=== PATIENT | female | born 1995 | race Asian ===

== ENCOUNTER 2016-08-23 15:32 | Emergency (ER) | payer BC, OTHER ==
[2016-08-23 16:09] VITALS: BP 113/65
--- NOTE | 2016-08-23 16:45 | UC ---
Complaint Female HPI - HPI Summary HPI Summary: FREQUENCY AND BURNING WITH URINATION SINCE THIS MORNING. NO BACK PAIN. NO FEVER. NO ABDOMINAL PAIN - History Of Current Complaint Chief Complaint: UCGU Stated Complaint: POSS UTI Time Seen by Provider: 08/23/16 15:58 Hx Obtained From: Patient Hx Last Menstrual Period: 08/16/16 Onset/Duration: Sudden Onset, Lasting Hours, Still Present Timing: Lasting Hours Severity Initially: Moderate Severity Currently: Moderate Character: Burning Aggravating Factor(s): Urination Alleviating Factor(s): Position Associated Signs And Symptoms: Negative: Fever, Back Pain, Vaginal Bleeding/ Discharge, Vaginal Discharge, Nausea, Vomiting(# Of Episodes =) - Risk Factors Ectopic Risk Factor: Negative Ovarian Torsion Risk Factor: Negative - Allergies/Home Medications Allergies/Adverse Reactions: Allergies Allergy/AdvReac Type Severity Reaction Status Date / Time No Known Allergies Allergy Verified 08/14/13 10:57 PMH/Surg Hx/FS Hx/Imm Hx Previously Healthy: Yes - Surgical History Surgical History: None - Family History Known Family History: Negative: Renal Disease - Social History Occupation: Student Lives: With Family Alcohol Use: Occasionally Substance Use Type: None Smoking Status (MU): Never Smoked Tobacco Review of Systems Constitutional: Negative Skin: Negative Eyes: Negative ENT: Negative Respiratory: Negative Cardiovascular: Negative Gastrointestinal: Negative Genitourinary: Dysuria, Frequency, Urgency Motor: Negative Neurovascular: Negative Musculoskeletal: Negative Neurological: Negative Psychological: Negative All Other Systems Reviewed And Are Negative: Yes Physical Exam Triage Information Reviewed: Yes Appearance: Well-Appearing, No Pain Distress, Well-Nourished Vital Signs: Initial Vital Signs Temp 98.4 F 08/23/16 16:06 Pulse 67 08/23/16 16:06 Resp 18 08/23/16 16:06 BP 113/65 08/23/16 16:06 Pulse Ox 100 08/23/16 16:06 Vital Signs Reviewed: Yes Eye Exam: Normal Eyes: Positive: Conjunctiva Clear ENT Exam: Normal ENT: Positive: Normal ENT inspection, Hearing grossly normal, Pharynx normal, TMs normal Dental Exam: Normal Neck exam: Normal Neck: Positive: Supple, Nontender, No Lymphadenopathy Respiratory Exam: Normal Respiratory: Positive: Chest non-tender, Lungs clear, Normal breath sounds, No respiratory distress, No accessory muscle use Cardiovascular Exam: Normal Cardiovascular: Positive: RRR, No Murmur, Pulses Normal Abdominal Exam: Normal Abdomen Description: Positive: Nontender, No Organomegaly, Soft. Negative: CVA Tenderness (R), CVA Tenderness (L) Musculoskeletal Exam: Normal Neurological Exam: Normal Psychological Exam: Normal Skin Exam: Normal Complaint Female Dx - Differential Dx/Diagnosis Differential Diagnosis/HQI/PQRI: Ovarian Cyst, Retained Foreign Body, Sexually Transmitted Disease, Urinary Tract Infection Provider Diagnoses: URINARY TRACT INFECTION Discharge - Discharge Plan Condition: Stable Disposition: HOME Prescriptions: Phenazopyridine TAB* [Pyridium 100 mg TAB*] 100 mg PO TID #15 tab Sulfamethox/Trimethoprim DS* [Bactrim DS 800/160 TAB*] 1 tab PO BID #10 tab Patient Education Materials: Urinary Tract Infection in Women (ED) Referrals: Alex Acosta MD [Primary Care Provider] -
== END 2016-08-23 16:50 | disposition home or self-care (01) ==
LOC: UCEAST 15:32
DX: N39.0 Urinary tract infection, site not specified (principal)
CPT/HCPCS: 81003; 84702; 87077; 87086; 87186; 99202; G0463

== ENCOUNTER 2016-10-09 07:55 | Emergency (ER) | payer BC ==
[2016-10-09 08:26] VITALS: BP 108/75
--- NOTE | 2016-10-09 08:36 | UC ---
Complaint Female HPI - HPI Summary HPI Summary: 5 DAYS OF URINARY FREQUENCY AND DYSURIA. NO FEVER, NAUSEA OR BACK PAIN. - History Of Current Complaint Chief Complaint: UCGU Stated Complaint: UTI Time Seen by Provider: 10/09/16 07:59 Hx Obtained From: Patient Hx Last Menstrual Period: 09/17/16 Onset/Duration: Gradual Onset, Lasting Days, Still Present Timing: Constant Severity Initially: Mild Severity Currently: Mild Pain Intensity: 2 Pain Scale Used: 0-10 Numeric Character: Burning Aggravating Factor(s): Urination Alleviating Factor(s): Nothing Associated Signs And Symptoms: Positive: Negative - Allergies/Home Medications Allergies/Adverse Reactions: Allergies Allergy/AdvReac Type Severity Reaction Status Date / Time No Known Allergies Allergy Verified 08/14/13 10:57 PMH/Surg Hx/FS Hx/Imm Hx Previously Healthy: Yes Endocrine History Of: Denies: Diabetes, Thyroid Disease Cardiovascular History Of: Denies: Cardiac Disorders, Hypertension Respiratory History Of: Denies: COPD, Asthma GI/ History Of: Denies: Ulcer - Surgical History Surgical History: None - Family History Known Family History: Negative: Hypertension, Renal Disease - Social History Alcohol Use: Occasionally Substance Use Type: None Smoking Status (MU): Never Smoked Tobacco Review of Systems Constitutional: Negative Respiratory: Negative Cardiovascular: Negative Gastrointestinal: Negative Genitourinary: Dysuria, Frequency All Other Systems Reviewed And Are Negative: Yes Physical Exam Triage Information Reviewed: Yes Appearance: Well-Appearing, No Pain Distress, Well-Nourished Vital Signs: Initial Vital Signs Temp 98.3 F 10/09/16 08:22 Pulse 64 10/09/16 08:22 Resp 18 10/09/16 08:22 BP 108/75 10/09/16 08:22 Pulse Ox 100 10/09/16 08:22 Vital Signs Reviewed: Yes Eyes: Positive: Conjunctiva Clear ENT: Positive: Hearing grossly normal Respiratory: Positive: No respiratory distress, No accessory muscle use Cardiovascular: Positive: Pulses Normal Abdomen Description: Positive: Soft, Other: - SUPRAPUBIC TTP. Negative: CVA Tenderness (R), CVA Tenderness (L), Distended, Guarding Musculoskeletal: Positive: No Edema Neurological: Positive: Alert Psychological: Positive: Age Appropriate Behavior Skin: Negative: rashes Diagnostics - Laboratory Diagnostic Studies Completed/Ordered: URINE TEST SP. GR. 1.030, 1+ LEUKS, 2+ BLOOD, 2+ PROTEIN. URINE HCG NEG Complaint Female Dx - Differential Dx/Diagnosis Provider Diagnoses: UTI Discharge - Discharge Plan Condition: Stable Disposition: HOME Prescriptions: Phenazopyridine TAB* [Pyridium TAB*] 200 mg PO TID #6 tab Sulfamethox/Trimethoprim DS* [Bactrim DS 800/160 TAB*] 1 tab PO BID #10 tab Patient Education Materials: Urinary Tract Infection in Women (ED) Referrals: Alex Acosta MD [Primary Care Provider] - If Needed
== END 2016-10-09 08:45 | disposition home or self-care (01) ==
LOC: UCEAST 07:55
DX: N39.0 Urinary tract infection, site not specified (principal)
CPT/HCPCS: 81003; 84702; 87077; 87086; 87186; 99212; G0463

== ENCOUNTER 2017-03-10 09:08 | Emergency (ER) | payer BC ==
[2017-03-10 09:17] VITALS: BP 121/68
--- NOTE | 2017-03-10 09:30 | UC ---
Back Pain HPI - HPI Summary HPI Summary: 1 WEEK OF LOWER BACK PAIN. WHEN SEATED IT RADIATES DOWN HER LEGS. NO NUMBNESS, TINGLING OR SADDLE ANESTHESIA. 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 IBUPROFEN NOT HELPFUL. WORSE WITH MOVEMENT. - History of Current Complaint Chief Complaint: UCBackPain Stated Complaint: BACK PAIN Time Seen by Provider: 03/10/17 09:22 Hx Obtained From: Patient Hx Last Menstrual Period: 02/24/17 Onset/Duration: Sudden Onset, Lasting Weeks, Still Present Timing: Constant Severity Initially: Moderate Severity Currently: Moderate Pain Intensity: 6 Pain Scale Used: 0-10 Numeric Back Pain: Is Discrete @ - LOWER BACK Character: Aching Aggravating Factor(s): Movement Alleviating Factor(s): Rest Associated Signs And Symptoms: Positive: Negative - Allergies/Home Medications Allergies/Adverse Reactions: Allergies Allergy/AdvReac Type Severity Reaction Status Date / Time No Known Allergies Allergy Verified 03/10/17 09:12 Home Medications: Home Medications Oral Control 03/10/17 [History] PMH/Surg Hx/FS Hx/Imm Hx Previously Healthy: Yes - Surgical History Surgical History: None - Family History Known Family History: Negative: Hypertension, Renal Disease - Social History Alcohol Use: Occasionally Substance Use Type: None Smoking Status (MU): Never Smoked Tobacco Review of Systems Constitutional: Negative Respiratory: Negative Cardiovascular: Negative Gastrointestinal: Negative Musculoskeletal: Decreased ROM, Myalgia All Other Systems Reviewed And Are Negative: Yes Physical Exam Triage Information Reviewed: Yes Appearance: Well-Appearing, No Pain Distress, Well-Nourished Vital Signs: Initial Vital Signs Temp 98.8 F 03/10/17 09:13 Pulse 68 03/10/17 09:13 Resp 16 03/10/17 09:13 BP 121/68 03/10/17 09:13 Pulse Ox 100 03/10/17 09:13 Vital Signs Reviewed: Yes Eyes: Positive: Conjunctiva Clear ENT: Positive: Hearing grossly normal Neck: Positive: Supple Respiratory: Positive: No respiratory distress, No accessory muscle use Cardiovascular: Positive: Pulses Normal Abdomen Description: Positive: Soft Musculoskeletal: Positive: No Edema, ROM Limited @ - BACK, Other: - NEG STRAIGHT LEG RAISE Neurological: Positive: Alert Psychological: Positive: Age Appropriate Behavior Skin: Negative: rashes Back Pain Course/Dx - Differential Dx/Diagnosis Provider Diagnoses: ACUTE LOW BACK PAIN Discharge - Discharge Plan Condition: Stable Disposition: HOME Prescriptions: Cyclobenzaprine TAB* [Flexeril TAB*] 10 mg PO BID PRN #30 tab PRN Reason: Pain Naproxen [Naproxen EC] 500 mg PO BID PRN #30 tab PRN Reason: Pain Patient Education Materials: Acute Low Back Pain (ED) Referrals: Alex Acosta MD [Primary Care Provider] - If Needed Additional Instructions: BE SURE TO GO THROUGH SLOW RANGE OF MOTION AND STRETCHING EXERCISES DAILY YOU ARE ABLE TO PREVENT STIFFENING UP AND MAKING THE DISCOMFORT WORSE. SEEK FOLLOW-UP WITH YOUR PCP IF YOU ARE NOT IMPROVING OVER THE NEXT FEW WEEKS.
== END 2017-03-10 09:40 | disposition home or self-care (01) ==
LOC: UCEAST 09:08
DX: M54.5 Low back pain (principal)
CPT/HCPCS: 99212; G0463

== ENCOUNTER 2017-06-13 10:49 | Emergency (ER) | payer BC ==
--- OUTSIDE RECORDS SUMMARY | 2017-06-13 11:09 | XMS REPORT ---
:1995 External Reference #:[id number] Author Organization [facility] Address [address] [place] [address] Phone [phone] Care Team Providers Name Role Phone Alex Acosta M.D. Primary Care Physician Unavailable Payers Type Date Identification Numbers Payment Provider Subscriber Commercial Policy Number: [employer] Alisa Tran [id number] Plan PayID: [id number] [address] [address] [place] [address] Problems Date Description Provider Status Onset: 04/29/2015 Myopia Marisela Celis O.D. 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 ETOH Use Denies alcohol use Smoking Patient has never smoked Recreational Drug Use Denies Drug Use Daily Caffeine Does Not Consume Caffeine Allergies, Adverse Reactions, Alerts Date Description Reaction Status Severity Comments 04/29/2015 NKDA active Medications Medication Date Status Form Strength Qnty SIG Indications Ordering Provider Ortho Tri-Cyclen Active Tablets 0.18/0.215/0 Unknown Lo 0 .25 mg-25 mcg No Active Hx Unknown Medications 5 - 5 Results Description No Information Procedures Date CPT Code Description Status 05/10/2017 28021 Determination Of Refractive State Completed 05/10/2017 17594 Est Patient Comprehensive Exam Completed 04/29/2015 47047 Determination Of Refractive State Completed 04/29/2015 69159 Est Patient Comprehensive Exam Completed 04/24/2014 75501 Determination Of Refractive State Completed 04/24/2014 79342 New Patient Comprehensive Exam Completed 04/24/2014 101 Level 1 SCL Fit/Refit Completed Plan of Care 05/10/2017 - Inessa Fu O.D.[id number] Myopia, bilateralComments:Smoking can increase the risk of developing or worsening any eye related disease, as well as affect your overall health. If you are a smoker, we strongly recommend that you quit.If you are not a smoker, we strongly recommend that you do not start. You have Myopia, or near sightedness. I have given you a prescription for glasses.Follow up:1 Year Follow Up
--- OUTSIDE RECORDS SUMMARY | 2017-06-13 11:10 | XMS REPORT ---
:1995 External Reference #:[id number] Author Organization [facility] Address [address] [place] [address] Phone [phone] Care Team Providers Name Role Phone Alex Acosta MD Care Team Information Rn Or Lvn Unavailable Alex Acosta MD Primary Care Physician Unavailable Payers Type Date Identification Payment Subscriber Numbers Provider Health Maintenance Effective: Policy Number: [employer]) 05/31/2016 [id number] Artur Sexton Group Number: [id number] [address] [address] PayID: [id number] [place] [address] Problems Description No Information Family History Date Family Member(s) Problem(s) Comments Father 51. healthy. Mother 49, healthy. First Brother healthy. Social History Type Date Description Comments Education Highest level of education completed is 12th grade. studying at [employer] second year. Studying accounting. 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 Cigarette Use Never Smoked Cigarettes ETOH Use Social Alcohol 3 drinks a month. Recreational Drug Use Never Used Drugs Exercise Type/Frequency Current Does not exercise Seat Belt/Car Seat Always uses a seat belt Bike Helmet Patient always wears a bike helmet Currently Active The patient is currently sexually active Allergies, Adverse Reactions, Alerts Date Description Reaction Status Severity Comments 05/20/2012 NKDA active Medications Medication Date Status Form Strength Qnty SIG Indications Ordering Provider Cyclobenzaprine 06/10 Active Tablets 10mg 10tab take one by G44.209 Karli C. 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 Do not take more than 3 consecutive days in a row. 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 /2008 today , then Midura, - 1 po qd M.D. 06/24 times Zithromax 05/16 Hx 200mg/5cc 30ml 1 1/2 TSP Aileen Suspension /2002 Day One Then Delfin, 200MG/5cc - 3/4 TSP WOOD FLOOR REFINISHER 06/23 Daily /2004 Over Next 4 Days. Albuterol 05/16 Hx 1unit 2 puffs Aileen Inhaler /2002 s q3-4H prn Delfin, - WOOD FLOOR REFINISHER 07/07 Aerochamber 05/16 Hx 1unit Use as Aileen /2002 s Directed Delfin, - WOOD FLOOR REFINISHER 07/07 Hydrocortisone 12/09 Hx 1% 30gm Apply bid Chaitanya Diaz /2000 prn Manolo Cazares M.DSridhar 07/07 To Zithromax 05/23 Hx 200mg/5cc 15ml 3/4 TSP Marshall T. Suspension /1997 Day1, Then Midura, 200MG/5cc - 1/2 TSP Day M.D. 05/05 2- Hydrocortisone 05/23 Hx 2.5% 30gm Apply bid Marshall T. Cream prn To Midura, - Lesions M.D. 05/05 Poly Fluoride 04/05 Hx 0.5mg Tab 100un One Tab Chaitanya Sridhar its Chewed Daily Blumkin, - M.D. 05/05 Sodium Sulamyd 05/26 Hx Lexi 10ml 1-2 gtts . 10% Opth Lexi /1996 Into Both Blumkin, - Eyes qid M.D. 05/05 Until Poly Fluoride 05/26 Hx 0.25mg 50cc One Dropper Chaitanya M. qd Blumkin, - M.D. 05/05 Ortho Tri-Cyclen Hx Tablets 0.18/0.21 28tab take as Unknown /0000 5/0.25 s directed - mg-35 mcg 05/15 Immunizations CPT Code Status Date Vaccine Lot # [id number] Given 02/16/2013 DO Not Use Split Influenza Virus Vaccine [id number] 27326 Given 03/22/2012 DO Not Use Split Influenza Virus Vaccine [id number] 13242 Given 10/22/2009 Gardasil vacine typs 6,11,16,18 3 dose [id number] schedule 91623 Given 06/27/2009 Gardasil vacine typs 6,11,16,18 3 dose [id number] schedule 92156 Given 04/24/2009 Gardasil vacine typs 6,11,16,18 3 dose [id number] schedule 57327 Given 07/07/2006 Tdap Tetanus, W Pertussis [id number] 69144 Given 07/07/2006 Hep A Ped 2-Dose Immunization [id number] 01460 Given 11/05/2005 Hep A Ped 2-Dose Immunization [id number] 23351 Given 05/05/2000 (IPV) Inactive Poliovirus Vaccine 42685 Given 05/05/2000 MMR Virus Immunization 92547 Given 04/07/1999 Oral Poliovirus Immunization 65038 Given 04/07/1999 MMR Virus Immunization 54563 Given 05/22/1997 DTP Immunization 07938 Given 05/22/1997 Oral Poliovirus Immunization 71364 Given 05/22/1997 Hemopholus Influenza B Immunization 00679 Given 01/14/1996 MMR Virus Immunization 29364 Given 09/29/1995 Measles Immunization 73900 Given 06/25/1995 Hepatitis B Immunization, [place]-19 Years 34929 Given 06/25/1995 Hemopholus Influenza B Immunization 27990 Given 06/25/1995 Oral Poliovirus Immunization 26717 Given 04/21/1995 Hemopholus Influenza B Immunization 09084 Given 04/21/1995 Oral Poliovirus Immunization 46970 Given 04/21/1995 DTP Immunization 31342 Given 02/19/1995 Hemopholus Influenza B Immunization 97779 Given 02/19/1995 Oral Poliovirus Immunization 15109 Given 02/19/1995 DTP Immunization 79364 Given 02/02/1995 Hepatitis B Immunization, [place]-19 Years 39450 Given 1994 Hepatitis B Immunization, -19 Years Vital Signs Date Vital Result Comment 06/10/2017 BP Systolic 118 mmHg BP Diastolic 60 mmHg Heart Rate 76 /min Body Temperature 98.7 F Respiratory Rate 16 /min Height 59.5 inches 4'11.50" Weight 129.25 lb BMI (Body Mass Index) 25.7 kg/m2 03/05/2016 BP Systolic 112 mmHg BP Diastolic 64 mmHg Heart Rate 64 /min Body Temperature 97.8 F Respiratory Rate 16 /min Height 59.5 inches 4'11.50" Weight 129.50 lb BMI (Body Mass Index) 25.7 kg/m2 11/28/2015 BP Systolic 110 mmHg BP Diastolic 68 mmHg Heart Rate 80 /min Body Temperature 98.7 F Respiratory Rate 16 /min Height 59.5 inches 4'11.50" Weight 122.12 lb BMI (Body Mass Index) 24.3 kg/m2 10/03/2015 BP Systolic 118 mmHg BP Diastolic 60 mmHg Heart Rate 68 /min Body Temperature 98.2 F Respiratory Rate 16 /min Height 59.5 inches 4'11.50" Weight 119.00 lb BMI (Body Mass Index) 23.6 kg/m2 08/20/2015 BP Systolic 108 mmHg BP Diastolic 70 mmHg Heart Rate 64 /min Body Temperature 96.8 F Respiratory Rate 16 /min Height 59.5 inches 4'11.50" Weight 119.00 lb BMI (Body Mass Index) 23.6 kg/m2 08/08/2015 BP Systolic 110 mmHg BP Diastolic 64 mmHg Heart Rate 68 /min Body Temperature 98.4 F Respiratory Rate 16 /min Height 59.5 inches 4'11.50" Weight 119.00 lb BMI (Body Mass Index) 23.6 kg/m2 11/16/2014 BP Systolic 110 mmHg BP Diastolic 64 mmHg Heart Rate 68 /min Body Temperature 95.7 F Respiratory Rate 16 /min Height 59.5 inches 4'11.50" Weight 120.00 lb BMI (Body Mass Index) 23.8 kg/m2 07/20/2014 BP Systolic 118 mmHg BP Diastolic 60 mmHg Heart Rate 64 /min Body Temperature 98.5 F Respiratory Rate 16 /min Height 59.5 inches 4'11.50" Weight 124.00 lb BMI (Body Mass Index) 24.6 kg/m2 07/18/2014 BP Systolic 106 mmHg BP Diastolic 56 mmHg Heart Rate 60 /min Body Temperature 98.1 F Respiratory Rate 16 /min Weight 124.12 lb 02/07/2014 BP Systolic 120 mmHg BP Diastolic 70 mmHg Heart Rate 76 /min Body Temperature 98.7 F Respiratory Rate 17 /min Height 59.5 inches 4'11.50" Weight 117.00 lb BMI (Body Mass Index) 23.2 kg/m2 10/13/2012 BP Systolic 90 mmHg BP Diastolic 60 mmHg Heart Rate 54 /min Body Temperature 98.6 F Respiratory Rate 16 /min O2 % BldC Oximetry 97 % Height 59.5 inches 4'11.50" Weight 112.00 lb BMI (Body Mass Index) 22.2 kg/m2 Body Mass Index Percentile 62 % Weight Percentile 25th Height Percentile 3 % 05/20/2012 BP Systolic 98 mmHg BP Diastolic 68 mmHg Heart Rate 60 /min Body Temperature 98.0 F Height 59.5 inches 4'11.50" Weight 118.00 lb BMI (Body Mass Index) 23.4 kg/m2 Body Mass Index Percentile 74 % Weight Percentile 40th Height Percentile 3 % 11/21/2010 BP Systolic 104 mmHg BP Diastolic 60 mmHg Heart Rate 60 /min Body Temperature 97.1 F Respiratory Rate 16 /min Height 59.5 inches 4'11.50" Weight 111.00 lb BMI (Body Mass Index) 22.0 kg/m2 Body Mass Index Percentile 68 % Weight Percentile 34th Height Percentile 3 % Right Visual Acuity Distance 20/50 corrected Left Visual Acuity Distance 20/50 corrected 07/25/2010 BP Systolic 100 mmHg BP Diastolic 56 mmHg Heart Rate 64 /min Body Temperature 98.6 F Height 59.5 inches 4'11.50" Weight 107.00 lb BMI (Body Mass Index) 21.2 kg/m2 Body Mass Index Percentile 62 % Weight Percentile 28th Height Percentile 4 % 08/14/2008 BP Systolic 110 mmHg BP Diastolic 70 mmHg Heart Rate 84 /min Body Temperature 101.5 F Weight 96.00 lb Weight Percentile 3007/07/2006 BP Systolic 92 mmHg BP Diastolic 50 mmHg Heart Rate 76 /min Body Temperature 99.2 F Height 51.5 inches 4'3.50" Weight 80.00 lb BMI (Body Mass Index) 21.2 kg/m2 Body Mass Index Percentile 88 % Weight Percentile 34th Height Percentile 5 % Right Visual Acuity Distance 20/20 Left Visual Acuity Distance 20/20 06/23/2004 Heart Rate 88 /min Body Temperature 97.7 F Weight 62.00 lb Weight Percentile 3203/31/2004 Heart Rate 78 /min Body Temperature 97.6 F Weight 60.00 lb Weight Percentile 3105/16/2003 Heart Rate 92 /min Body Temperature 98.8 F Weight 55.00 lb Weight Percentile 3404/11/2001 Heart Rate 88 /min Body Temperature 98.8 F Height 41 inches 3'5" Weight 35.00 lb BMI (Body Mass Index) 14.6 kg/m2 Weight Percentile <5th Height Percentile 5 % Right Visual Acuity Distance 20/20 Left Visual Acuity Distance /20/20 12/09/2000 Body Temperature 98.1 F Weight 34.00 lb 05/05/2000 BP Systolic 98 mmHg BP Diastolic 54 mmHg Heart Rate 120 /min Height 40.5 inches 3'4.50" Weight 34.00 lb BMI (Body Mass Index) 14.9 kg/m2 Height Percentile 9 % Right Visual Acuity Distance 20/25 Left Visual Acuity Distance 20/25 04/07/1999 BP Systolic 98 mmHg BP Diastolic 54 mmHg Heart Rate 88 /min Height 38 inches 3'2" Weight 30.00 lb BMI (Body Mass Index) 14.6 kg/m2 Height Percentile 12 % 05/23/1998 Body Temperature 97.8 F Weight 27.00 lb Weight Percentile 04/05/1998 Body Temperature 97.6 F Height 35 inches 2'11" Weight 27.00 lb Weight Percentile 04/02/1998 Body Temperature 96.9 F Weight 27.00 lb Weight Percentile 05/22/1997 Body Temperature 96.2 F Respiratory Rate 2020 /min Height 32.50 inches 2'8.50" Weight 23.00 lb Weight Percentile <5th Results Test Date Test Result H/L Range Note Laboratory test 10/09/2016 Urine Culture And SEE RESULT BELOW 1, 2 finding Sensitivities Laboratory test 10/09/2016 Poc , Urine Negative Negative 3 finding Poc Urinalysis 10/09/2016 Poc Glucose, Urine Negative Negative Poc Bilirubin, Urine Negative Negative Poc Ketone, Urine Negative Negative Poc Specific Braggs, Urine >=1.030 1.010-1.030 Poc Blood, Urine 2+ Negative Poc pH, Urine 6.0 5-9 Poc Protein, Urine 2+ Negative Poc Urobilinogen, Urine 0.2 Negative Poc Nitrite, Urine Negative Negative Poc Leukocytes, Urine 1+ Negative Poc Color, Urine Yellow Poc Clarity, Urine Cloudy 4 Laboratory test 08/23/2016 Urine Culture And SEE RESULT BELOW 5 finding Sensitivities Iron And Tibc 10/03/2015 Iron Bind.Cap.(Tibc) 358 g/dL 250-450 6 Uibc 283 g/dL 131-425 6 Iron, Serum 75 g/dL 27-159 6 Iron Saturation 21 % 15-55 6 Laboratory test finding 10/03/2015 Ferritin 16 ng/mL 6-115 7 Vitamin B-12 272 pg/mL 230-1050 Vitamin D25 14 Low 30-100 8 Laboratory test finding 10/03/2015 Sedimentation Rate 4mm Hemoglobinopahty Profile 10/03/2015 Hgb Solubility Negative Negative 6 Hgb F 11.3 % High 0.0-2.0 6, 9 Hgb A 83.5 % Low 94.0-98.0 6 Hgb S 0.0 % 0.0 6 Hgb C 0.0 % 0.0 6 Hgb A2 5.2 % High 0.7-3.1 6 Hgb Variant TNP 6 Interpretation See Comment: 6, 10 Comprehensive Metabolic Prof 08/08/2015 Sodium 135 mEq/L 134-149 Potassium 4.3 mEq/L 3.6-5.5 Chloride 101 mEq/L 94-112 Carbon Dioxide 26 mEq/L 21-32 Glucose 91 mg/dL 70-105 BUN 8 mg/dL 6-26 Creatinine 0.7 mg/dL 0.6-1.4 BUN/Creat Ratio 11.4 CALC 8.0-36.0 Calcium 9.8 mg/dL 8.6-10.2 Total Protein 7.2 g/dL 6.4-8.3 Albumin 4.3 g/dL 3.8-5.5 Globulin 2.9 g/dL 2.0-4.8 A/G Ratio 1.5 CALC 0.6-2.3 Alk. Phosphatase 29 U/L Low 30-110 11 Alt (SGPT) 9 U/L 7-35 Ast (Sgot) 18 U/L 5-34 Total Bilirubin 0.5 mg/dL 0.2-1.3 GFR Non- >60 ml/min/1.73m^ >=60 GFR >60 ml/min/1.73m^ >=60 Lipid Profile 08/08/2015 Cholesterol 177 mg/dL 120-200 Triglycerides 119 mg/dL 30-200 HDL Cholesterol 76 mg/dL 30-85 LDL (Calculated) 77 CALC 0-129 VLDL Cholesterol 24 mg/dL 0-50 HDL Risk Factor 2.3 CALC 0.0-4.4 Complete Blood Count 08/08/2015 WBC 6.0 x10^3/UL 3.6-9.6 RBC 5.33 x10^6/UL 3.90-5.70 HGB 12.1 g/dL 12.1-17.2 HCT 38 % 36-50 MCV 70.0 fL Low 82.2-97.4 12 MCH 22.7 pg Low 27.6-33.3 13 MCHC 32.1 g/dL Low 33.0-35.5 14 RDW 19.4 % High 11.6-13.7 PLT 387 x10^3/UL 150-400 MPV 7.6 fL 7.4-10.4 Gran # 4.5 x10^3/UL 1.5-7.2 Lymph# 1.3 x10^3/UL 0.7-4.9 Linn# 0.2 x10^3/UL 0.1-0.9 Gran % 73.9 % 42.2-75.2 Lymph % 22.2 % 20.5-51.1 Linn% 3.9 % 1.7-9.3 Laboratory test finding 08/08/2015 TSH 1.43 mIU/L 0.50-6.00 15 Free T4 1.01 ng/dL 0.75-1.54 Laboratory test finding 11/16/2014 Quickstrep negative Negative Throat - Beta Strep Fma negative@48hrs Laboratory test finding 10/13/2012 Quickstrep NEGATIVE Negative Throat - Beta Strep Fma [id number] Ua - Micro (a) 07/07/2006 Appearance CLEAR Color YELLOW Glucose NEG Bilirubin NEG Ketones NEG SP Grav >=1.030 Blood TRACE-INTACT PH 5.0 Protein, Random Urine NEG Urobil 0.2 Nitrite NEG Leukocytes (Fma/CMC/Centrex) NEG Hyaline - /Lpf Granular - /Lpf WBC (Fma,Centrex) - RBC, Fluid 2-4 Mucus SM AMT /Lpf Epith - /Lpf Bacteria RARE /Hpf Amorphous - /Lpf Crystals, Urine (Fma/CMC/CTX) - /Lpf Misc - Ua - Micro (a New) 04/19/2001 Appearance CLEAR LT YELLOW Glucose NEGATIVE Bilirubin NEGATIVE Ketones NEGATIVE SP Grav >=1.030 Blood TRACE-INTACT PH 5.0 Protein NEGATIVE Urobil 0.2 Nitrite NEGATIVE Leukocytes NEGATIVE Hyaline - /Lpf Granular - /Lpf WBC'S - RBC'S 0-1 Mucus - /Lpf Epith RARE Bacteria RARE Amorphous SLT /Lpf Crystals - /Lpf Comments - Laboratory test finding 04/11/2001 Hematocrit 35 % Low 36.1 - 50.3 Ua - Micro ([facility]) 04/11/2001 Appearance CLEAR LT YELLOW Glucose NEGATIVE Bilirubin NEGATIVE Ketones NEGATIVE SP Grav 1.020 Blood TRACE-INTACT PH 7.0 Protein NEGATIVE Urobil 1.0 Nitrite NEGATIVE Leukocytes TRACE Hyaline - /Lpf Granular - /Lpf WBC'S 0-1 RBC'S 1-5 Mucus - /Lpf Epith - Bacteria 1+ Amorphous - /Lpf Crystals - /Lpf Comments SEE DETAILS 16 Ua - Non Micro (a New) 05/05/2000 Appearance CLEAR/LT YELLOW Glucose NEG Bilirubin NEG Ketones NEG SP Grav 1.015 Blood NEG PH 7.0 Protein NEG Urobil 0.2 Nitrite NEG Leukocytes NEG Ua - Non Micro ([facility]) 04/07/1999 Appearance LT. YEL CLEAR SP Grav 1.010 Esterase - Nitrite - pH 7.5 Protein - Glucose - Ketones - Urobil - Bilirubin - Blood - 1 [id number] SEE RESULT BELOW Name: LONNIE SEXTON : [address]: Coco Post MD Acct: [id number] Unit: [id number] AGE: 20 Location: [facility] Re10/09/16 SEX: F Status: DEP ER SPEC: [id number] MARYSOL: 10/09/[address]: Coco Post MD REQ: [id number] RECD: 10/09/16 STATUS: TRIXIE JOYNER DR: Alex Acosta MD _ SOURCE: URINE SPDESC: ORDERED: Urine Culture COMMENTS: [id number] Procedure Result Reported Site Urine Culture Final 10/11/16- 0728 ML Organism 1 ESCHERICHIA COLI [place] Count >100,000 (Many) CFU/ML 1. ESCHERICHIA COLI M.I.C. RX --------- ------ Ampicillin >=32 R Cefazolin <=4 S Cefepime <=1 S Ceftriaxone <=1 S Ciprofloxacin <=0.25 S Gentamicin <=1 S Levofloxacin <=0.12 S Meropenem <=0.25 S Nitrofurantoin <=16 S Tetracycline <=1 S Pipercillin/Tazobactam <=4 S Trimethoprim/Sulfamethoxazole <=20 S Amoxicillin/Clavulanic Acid 16 I Aztreonam <=1 S Contact the Microbiology Department for any additional antibiotic reporting. * ML - MAIN LAB ([facility]) . END OF REPORT * ML=Testing performed at Main Lab DEPARTMENT OF PATHOLOGY, [address] [place] [address] Chaitanya Sanchez M.D. Director [facility] # [id number] 3 Reporter Anchor: [id number] If is still suspected, please repeat test after 48 to 72 hours. 4 Reporter Anchor: [id number] 5 SEE RESULT BELOW Name: LONNIE SEXTON : [address]: Kwaku Hearn MD Acct: [id number] Unit: [id number] AGE: 20 Location: [facility] Re08/23/16 SEX: F Status: DEP ER SPEC: [id number] MARYSOL: 08/23/16-[address]: Say WEBER REQ: [id number] RECD: 08/24/16-1099 STATUS: TRIXIE JOYNER DR: Kwaku Acosta MD _ SOURCE: URINE SPDESC: ORDERED: Urine Culture Procedure Result Reported Site Urine Culture Final 08/31/16- 1507 ML Organism 1 STREP GROUP B [place] Count 10-25,000 (Moderate) CFU/ML Organism 2 ESCHERICHIA COLI [place] Count 25-50,000 (Moderate) CFU/ML Susceptibility testing of penicillins and other B-lactams approved by FDA for treatment of Streptococcus pyogenes (Group A Strep) and Streptococcus agalactiae (Group B Strep) is not necessary for clinical purposes and need not be done routinely, since as with vancomycin, resistant strains have not been recognized. (CLSI G290-S47;p.66) Positive isolates will be saved for one week. Please call the Microbiology Laboratory if further susceptibility testing is needed. 2. ESCHERICHIA COLI M.I.C. RX --------- ------ Ampicillin >=32 R Cefazolin 16 I Cefepime <=1 S Ceftriaxone <=1 S Ciprofloxacin <=0.25 S Gentamicin <=1 S Levofloxacin <=0.12 S Meropenem <=0.25 S Nitrofurantoin <=16 S CONTINUED ON NEXT PAGE * ML=Testing performed at Main Lab DEPARTMENT OF PATHOLOGY, [address] [place] [address] Chaitanya Sanchez M.D. Director [facility] # [id number] Patient: LONNIE SEXTON [id number] (Continued) Specimen: [id number] Collected: 08/23/16-1619 Received: 08/24/16-1099 (Continued) Procedure Result Reported Site Urine Culture Final (continued) 08/31/16- 150 2. ESCHERICHIA COLI (continued) M.I.C. RX --------- ------ Tetracycline <=1 S Pipercillin/Tazobactam <=4 S Trimethoprim/Sulfamethoxazole <=20 S Amoxicillin/Clavulanic Acid 16 I Aztreonam <=1 S Contact the Microbiology Department for any additional antibiotic reporting. * ML - MAIN LAB ([facility]) . END OF REPORT * ML=Testing performed at Main Lab DEPARTMENT OF PATHOLOGY, [address] [place] [address] Chaitanya Sanchez M.D. Director [facility] # [id number] 6 1 sst 7 FASTING 8 RESULTS VERIFIED BY REPEAT ANALYSIS 9 Hemoglobin pattern and concentrations reveal an elevation of Hgb F which may indicate the presence of a hereditary persistence gene. However, elevations of Hgb F have also been reported to occur with certain anemias, , porphyrias, and some malignancies. 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 Suggest hematologic and clinical correlation. 11 RESULTS VERIFIED BY REPEAT ANALYSIS 12 RESULTS VERIFIED BY REPEAT ANALYSIS 13 RESULTS VERIFIED BY REPEAT ANALYSIS 14 RESULTS VERIFIED BY REPEAT ANALYSIS 15 FASTING 16 REPEAT UA SCHEDULED FOR 04/19/01. Procedures Date CPT Code Description Status 10/13/2012 49743 Pulse Oximetry Completed 11/21/2010 66972 Vision Test- screening test of visual acuity, Completed quantitative, bila Encounters Type Date Location Provider CPT E/M Dx Office Visit 03/05/2016 3:15p Main Office Bree CodyMaribel 26277 R11.0 R42 Office Visit 11/28/2015 2:00p Main Office Varsha Uribe, [facility] 86803 F43.21 G47.01 N92.0 D64.9 Office Visit 10/03/2015 8:00a Main Office Varsha Uribe [facility] 30273 F43.21 G47.01 G47.26 N92.0 D64.9 Office Visit 08/20/2015 9:45a Main Office Varsha Herrmannbhart [facility] 40248 F43.21 Office Visit 08/08/2015 10:00a [facility] Office Martha Lemus M.D. 75372 Z00.01 F43.21 R23.8 Office Visit 11/16/2014 2:00p [facility] Office Varsha Herrmannkasandra [facility] 96162 462 Office Visit 07/20/2014 2:00p [facility] Office Varsha Herrmannbhart [facility] 93329 789.09 Office Visit 07/18/2014 1:00p [place] [address] 726.31 Office Visit 02/07/2014 1:30p [place] [address] 461.8 Office Visit 10/13/2012 9:00a [facility] Office Bree CodyMaribel 72924 465.9 Office Visit 05/20/2012 10:20a [facility] Office Alex Acosta M.D. 87693 V70.0 Office Visit 11/21/2010 3:00p [facility] Office Martha Lemus M.D. 05543 V70.0 Office Visit 07/25/2010 11:40a [facility] Office Martha Lemus M.D. 71516 307.20 V70.0 Office Visit 08/14/2008 2:00p Main Office Marshall Castanon M.D. 81513 465.9 461.9 Office Visit 07/07/2006 3:30p [facility] Office Pat Leblanc-C 43018 V06.5 V05.3 599.7 V20.2 Office Visit 06/23/2004 11:00a Main Office Israel Chun M.D. 73508 465.9 Office Visit 03/31/2004 12:00p Main Office Marshall Castanon M.D. 57610 782.1 Office Visit 05/16/2003 2:00p Main Office Aileen Lenz [facility] 71277 490 Office Visit 04/11/2001 2:20p [facility] Office Chaitanya Cazares M.D. 72932 Office Visit 12/09/2000 12:40p Main Office Chaitanya Cazares M.D. 02769 Plan of Care 06/10/2017 - Karli Hearn, NPG44.209 Tension-type headache, unspecified, not intractableNew Medication:Cyclobenzaprine HCL 10 mgSumatriptan Succinate 50 mgComments:Plan A: take a headache preparation that has aspirin, acetaminophen, and caffeine at the first sign of pain; use the muscle relaxer shortly thereafter. Do this for 3 days -- if you stop getting headaches, simply use that when needed. If you continue to have headaches, go to . . .Plan B: take one sumatriptan by mouth at first sign of headache, not more than 3 days in a row (and not more than 4 doses in a week).If you stop having headaches, simply follow up only if needed. If you continue to have headaches, please come back for a recheck and to consider neurological consultation.
[2017-06-13 11:15] VITALS: BP 122/72
--- NOTE | 2017-06-13 11:48 | UC ---
Abdominal Pain Female HPI - HPI Summary HPI Summary: Patient presents with an unremarkable past medical history. She presents with complaints of abdominal pain for 4 months, she states it is in the epigastrium and radiates up the abdomen and at times and around to her back. She reports associated nausea. She denies fever, chills, chest pain, dyspnea, diarrhea, dysuria, abnormal vaginal discharge, or bleeding. She cannot states any factors that make the pain better or worse. She states that in the last 4 days the pain and gotten worse, and has become more persistent. - History of Current Complaint Chief Complaint: UCAbdominalPain Stated Complaint: ABDOMINAL PAIN Time Seen by Provider: 06/13/17 11:40 Hx Obtained From: Patient Hx Last Menstrual Period: t-14 ?: No Onset/Duration: Sudden Onset Timing: Intermittent Episodes Lasting: Severity Initially: Mild Severity Currently: Moderate Location: Discrete At: RUQ, Epigastric Radiates to: Back Character: Cramping Aggravating Factor(s): Nothing Alleviating Factor(s): Nothing Associated Signs and Symptoms: Positive: Negative - Risk Factors Ectopic Risk Factor: Negative Allergies/Adverse Reactions: Allergies Allergy/AdvReac Type Severity Reaction Status Date / Time No Known Allergies Allergy Verified 03/10/17 09:12 PMH/Surg Hx/FS Hx/Imm Hx Previously Healthy: Yes - Surgical History Surgical History: None - Family History Known Family History: Negative: Hypertension, Renal Disease - Social History Occupation: Employed Full-time Lives: Alone Alcohol Use: Occasionally Substance Use Type: None Smoking Status (MU): Never Smoked Tobacco Review of Systems Constitutional: Negative Skin: Negative Eyes: Negative ENT: Negative Respiratory: Negative Cardiovascular: Negative Gastrointestinal: Abdominal Pain, Nausea Genitourinary: Negative Motor: Negative Neurovascular: Negative Musculoskeletal: Negative Neurological: Negative Psychological: Negative Is Patient Immunocompromised?: No All Other Systems Reviewed And Are Negative: Yes Physical Exam Triage Information Reviewed: Yes Appearance: Well-Appearing Vital Signs: Initial Vital Signs Temp 97.9 F 06/13/17 11:12 Pulse 77 06/13/17 11:12 Resp 14 06/13/17 11:12 BP 122/72 06/13/17 11:12 Pulse Ox 100 06/13/17 11:12 Vital Signs Reviewed: Yes Eye Exam: Normal ENT Exam: Normal Neck exam: Normal Neck: Positive: 1 Respiratory Exam: Normal Cardiovascular Exam: Normal Abdominal Exam: Normal Abdomen Description: Positive: No Organomegaly, Soft, Other: - mcmurphy's sign positive. Skin Exam: Normal Abd Pain Female Course/Dx - Course Course Of Treatment: Patient presents with complaints of abdominal pain x 4 months with worsening symtpoms the last 4 days and associated nausea. She had normal vital signs, with nontoxic appearance, and I felt she needed a through work up that could not be obtained in a timely manner at this facility and therefore was discharged and told to go directly to the ER. She declined ambulance transport to the ER. At the time of discharge the patient was hemodynamically stable. - Differential Dx/Diagnosis Differential Diagnosis: Other - abdominal pain Provider Diagnoses: abdominal pain Discharge - Discharge Plan Condition: Stable Disposition: HOME Patient Education Materials: Abdominal Pain (ED) Referrals: No Primary Care Phys,NOPCP [Primary Care Provider] -
== END 2017-06-13 11:52 | disposition home or self-care (01) ==
LOC: UCEAST 10:49
DX: R10.13 Epigastric pain (principal); Z77.22 Contact with and (suspected) exposure to environmental tobacco smoke (acute) (chronic)
CPT/HCPCS: 99212; G0463

== ENCOUNTER 2017-06-13 12:23 | Emergency (ER) | payer BC ==
[2017-06-13] MEDS ORDERED: Sucralfate TAB* 1 GM PO ONE (15:07)
[2017-06-13] MEDS ORDERED: NS 0.9% 1000 ML* 1,000 ML IV ONE (15:07)
[2017-06-13] MEDS ORDERED: Pantoprazole IV* 40 MG IV ONE (15:07)
[2017-06-13 16:10] LABS: EGFR Non-African American 118.2 (>60)
[2017-06-13 16:11] LABS: ABS Basophils 0 10^3/ul (0-0.2); ABS Eosinophils 0 10^3/ul (0-0.6); ABS Monocytes 0.5 10^3/ul (0-0.8); ABS Neutrophils 4.9 10^3/ul (1.5-7.7); ABS Nucleated RBC 0 10^3/ul; Eosinophil % 0.6 % (0-6); Hematocrit 35 % (35-47); Hemoglobin 11.5 g/dl (12.0-16.0); Lymphocyte % 27.4 % (25-47); Mean Corpuscular HGB Conc 33 g/dl (31-36); Mean Corpuscular Hemoglobin 22 pg (27-31); Mean Corpuscular Volume 67 fL (80-97); Mean Platelet Volume 7 um3 (7.4-10.4); Nucleated Red Blood Cells % 0.1; Platelet Count 324 10^3/ul (150-450); Red Blood Count 5.24 10^6/ul (4.0-5.4); Red Cell Distribution Width 21 % (10.5-15); White Blood Count 7.4 10^3/ul (3.5-10.8)
[2017-06-13 16:24] LABS: Urine Appearance Clear; Urine Blood 1+ (Negative); Urine Color Yellow; Urine Ketones Negative (Negative); Urine Protein Negative (Negative); Urine Specific Gravity 1.013 (1.010-1.030); Urine Urobilinogen Negative (Negative)
--- NOTE | 2017-06-13 17:33 | ED ---
Марина Johnson Abhishek, scribed for Sid De Leon MD on 06/13/17 at 1509 . Abdominal Pain/Female - HPI Summary HPI Summary: This patient is a 21 year old F presenting to [facility] accompanied by male with a chief complaint of lower abd pain since 06/10/17. The Pt states she has had previous episodes of intermittent abd pain similar to current episode, however, this pain is described as a constant pains compared to the intermittent prior episodes. Pt later states that despite the constant pain, there are moments where the pain waxes and wanes. The patient rates the pain 4/10 in severity currently. Symptoms aggravated by nothing. Symptoms alleviated by nothing. Patient reports lower abd pain radiates to the back right side, and nausea. LMNP was before last week. - History of Current Complaint Chief Complaint: EDAbdPain Stated Complaint: ABD PAIN Time Seen by Provider: 06/13/17 12:36 Hx Obtained From: Patient Hx Last Menstrual Period: Reported to before last week (prior to 06/06/17) ?: No Onset/Duration: Lasting Days - since 06/10/17 Timing: Constant - since 06/10/17 Severity Initially: Moderate Severity Currently: Moderate Pain Intensity: 4 Location: Other - Lower abd pain Radiates: Yes Radiates to: Back - right side Aggravating Factor(s): Nothing Alleviating Factor(s): Nothing Associated Signs and Symptoms: Positive: Back Pain - right side, Nausea Allergies/Adverse Reactions: Allergies Allergy/AdvReac Type Severity Reaction Status Date / Time No Known Allergies Allergy Verified 06/13/17 12:25 PMH/Surg Hx/FS Hx/Imm Hx Endocrine/Hematology History: Denies: Hx Diabetes, Hx Thyroid Disease Cardiovascular History: Denies: Hx Hypertension Respiratory History: Denies: Hx Asthma, Hx Chronic Obstructive Pulmonary Disease (COPD) GI History: Denies: Hx Ulcer Infectious Disease History: No Infectious Disease History: Denies: Hx Clostridium Difficile, Hx Hepatitis, Hx Human Immunodeficiency Virus (HIV), Hx of Known/Suspected MRSA, Hx Shingles, Hx Tuberculosis, Hx Known/ Suspected VRE, Hx Known/Suspected VRSA, History Other Infectious Disease, Traveled Outside the [place] in Last 30 Days - Family History Known Family History: Negative: Hypertension, Renal Disease - Social History Alcohol Use: Occasionally Alcohol Amount: couple times every 2 weeks Substance Use Type: Reports: None Smoking Status (MU): Never Smoked Tobacco Review of Systems Constitutional: Negative Eyes: Negative ENT: Negative Cardiovascular: Negative Respiratory: Negative Positive: Abdominal Pain - lower abd, Nausea Genitourinary: Negative Musculoskeletal: Other - back pain (right side) Skin: Negative Neurological: Negative Psychological: Normal All Other Systems Reviewed And Are Negative: Yes Physical Exam - Summary Physical Exam Summary: Appearance: The patient is well-nourished in no acute distress and in no acute pain. Skin: The skin is warm and dry and skin color reflects adequate perfusion. HEENT: ~The head is normocephalic and atraumatic. The pupils are equal and reactive. The conjunctivae are clear and without drainage. ~Nares are patent and without drainage. ~Mouth reveals moist mucous membranes and the throat is without erythema and exudate. ~The external ears are intact. The ear canals are patent and without drainage. The tympanic membranes are intact. Neck: the neck is supple with full range of motion and non-tender. There are no carotid bruits. ~There is no neck vein distension. Respiratory: Chest is non-tender. ~Lungs are clear to auscultation and breath sounds are symmetrical and equal. Cardiovascular: Heart is regular rate and rhythm. ~There is no murmur or rub auscultated. ~~There is no peripheral edema and pulses are symmetrical and equal. Abdomen: Tender in epigastrium, mildly tender in the right upper quadrant and Negative [place] signs Musculoskeletal: There is no back tenderness noted. ~Extremities are non-tender with full range of motion. ~There is good capillary refill. ~There is no peripheral edema or calf tenderness elicited. Neurological: Patient is alert and oriented to person, place and time. ~The patient has symmetrical motor strength in all four extremities. ~Cranial nerves are grossly intact. Deep tendon reflexes are symmetrical and equal in all four extremities. Psychiatric: The patient has an appropriate affect and does not exhibit any anxiety or depression. Triage Information Reviewed: Yes Vital Signs On Initial Exam: Initial Vitals Temp Pulse Resp BP Pulse Ox 98.2 F 70 16 122/66 100 06/13/17 12:25 06/13/17 12:25 06/13/17 12:25 06/13/17 12:25 06/13/17 12:25 Vital Signs Reviewed: Yes Diagnostics - Vital Signs Vital Signs Temp Pulse Resp BP Pulse Ox 06/13/17 12:43 68 99 06/13/17 12:42 114/78 06/13/17 12:25 98.2 F 70 16 122/66 100 - Laboratory Lab Results: Lab Results 06/13/17 06/13/17 06/13/17 Range/Units 13:32 13:32 13:32 WBC 7.4 (3.5-10.8) 10^3/ul RBC 5.24 (4.0-5.4) 10^6/ul Hgb 11.5 L (12.0-16.0) g/dl Hct 35 (35-47) % MCV 67 L (80-97) fL MCH 22 L (27-31) pg MCHC 33 (31-36) g/dl RDW 21 H (10.5-15) % Plt Count 324 (150-450) 10^3/ul MPV 7 L (7.4-10.4) um3 Neut % (Auto) 65.3 (38-83) % Lymph % (Auto) 27.4 (25-47) % [place] % (Auto) 6.2 (1-9) % Eos % (Auto) 0.6 (0-6) % Baso % (Auto) 0.5 (0-2) % Absolute Neuts (auto) 4.9 (1.5-7.7) 10^3/ul Absolute Lymphs (auto) 2.0 (1.0-4.8) 10^3/ul Absolute Monos (auto) 0.5 (0-0.8) 10^3/ul Absolute Eos (auto) 0 (0-0.6) 10^3/ul Absolute Basos (auto) 0 (0-0.2) 10^3/ul Absolute Nucleated RBC 0 10^3/ul Nucleated RBC % 0.1 Hypochromasia 1+ Anisocytosis 1+ Microcytosis 1+ Sodium 136 (133-145) mmol/L Potassium 3.7 (3.5-5.0) mmol/L Chloride 104 (101-111) mmol/L Carbon Dioxide 25 (22-32) mmol/L Anion Gap 7 (2-11) mmol/L BUN 9 (6-24) mg/dL Creatinine 0.63 (0.51-0.95) mg/dL Est GFR ( Amer) 152.0 (>60) Est GFR (Non-Af Amer) 118.2 (>60) BUN/Creatinine Ratio 14.3 (8-20) Glucose 80 (70-100) mg/dL Lactic Acid 0.7 (0.5-2.0) mmol/L Calcium 9.3 (8.6-10.3) mg/dL Total Bilirubin 0.60 (0.2-1.0) mg/dL AST 14 (13-39) U/L ALT 7 (7-52) U/L Alkaline Phosphatase 30 L (34-104) U/L C-Reactive Protein 21.58 H (< 5.00) mg/L Total Protein 7.2 (6.4-8.9) g/dL Albumin 4.0 (3.2-5.2) g/dL Globulin 3.2 (2-4) g/dL Albumin/Globulin Ratio 1.3 (1-3) Lipase 17 (11.0-82.0) U/L Beta HCG, Quant < 0.60 mIU/mL Urine Color Urine Appearance Urine pH (5-9) Ur Specific [place] (1.010-1.030) Urine Protein (Negative) Urine Ketones (Negative) Urine Blood (Negative) Urine Nitrate (Negative) Urine Bilirubin (Negative) Urine Urobilinogen (Negative) Ur Leukocyte Esterase (Negative) Urine WBC (Auto) (Absent) Urine RBC (Auto) (Absent) Ur Squamous Epith Cells (Absent) Urine Bacteria (Absent) Urine Glucose (Negative) 06/13/17 Range/Units 13:32 WBC (3.5-10.8) 10^3/ul RBC (4.0-5.4) 10^6/ul Hgb (12.0-16.0) g/dl Hct (35-47) % MCV (80-97) fL MCH (27-31) pg MCHC (31-36) g/dl RDW (10.5-15) % Plt Count (150-450) 10^3/ul MPV (7.4-10.4) um3 Neut % (Auto) (38-83) % Lymph % (Auto) (25-47) % [place] % (Auto) (1-9) % Eos % (Auto) (0-6) % Baso % (Auto) (0-2) % Absolute Neuts (auto) (1.5-7.7) 10^3/ul Absolute Lymphs (auto) (1.0-4.8) 10^3/ul Absolute Monos (auto) (0-0.8) 10^3/ul Absolute Eos (auto) (0-0.6) 10^3/ul Absolute Basos (auto) (0-0.2) 10^3/ul Absolute Nucleated RBC 10^3/ul Nucleated RBC % Hypochromasia Anisocytosis Microcytosis Sodium (133-145) mmol/L Potassium (3.5-5.0) mmol/L Chloride (101-111) mmol/L Carbon Dioxide (22-32) mmol/L Anion Gap (2-11) mmol/L BUN (6-24) mg/dL Creatinine (0.51-0.95) mg/dL Est GFR ( Amer) (>60) Est GFR (Non-Af Amer) (>60) BUN/Creatinine Ratio (8-20) Glucose (70-100) mg/dL Lactic Acid (0.5-2.0) mmol/L Calcium (8.6-10.3) mg/dL Total Bilirubin (0.2-1.0) mg/dL AST (13-39) U/L ALT (7-52) U/L Alkaline Phosphatase (34-104) U/L C-Reactive Protein (< 5.00) mg/L Total Protein (6.4-8.9) g/dL Albumin (3.2-5.2) g/dL Globulin (2-4) g/dL Albumin/Globulin Ratio (1-3) Lipase (11.0-82.0) U/L Beta HCG, Quant mIU/mL Urine Color Yellow Urine Appearance Clear Urine pH 6.0 (5-9) Ur Specific [place] 1.013 (1.010-1.030) Urine Protein Negative (Negative) Urine Ketones Negative (Negative) Urine Blood 1+ H (Negative) Urine Nitrate Negative (Negative) Urine Bilirubin Negative (Negative) Urine Urobilinogen Negative (Negative) Ur Leukocyte Esterase Negative (Negative) Urine WBC (Auto) Trace(0-5/hpf) (Absent) Urine RBC (Auto) Trace(0-2/hpf) (Absent) Ur Squamous Epith Cells Present H (Absent) Urine Bacteria Absent (Absent) Urine Glucose Negative (Negative) Result Diagrams: 06/13/17 13:32 06/13/17 13:32 Lab Statement: Any lab studies that have been ordered have been reviewed, and results considered in the medical decision making process. Abdominal Pain Fem Course/Dx - Course Course Of Treatment: Ms. Tran presented with epigastric and RUQ pain with no exacerbation and relieving factors. She has had it intermittently for a long time but for the last couple of days, it has been constant. It is described as sharp. She got significant relief from GI meds here although not complete. Her W/U was normal. I will start her on prilosec and encourage F/U this coming week. - Diagnoses Provider Diagnoses: Epigastric pain Discharge - Discharge Plan Condition: Stable Disposition: HOME Prescriptions: Omeprazole CAP* [Prilosec CAP* 20 MG] 20 mg PO BID #20 cap. Patient Education Materials: Epigastric Pain (ED) Referrals: Alex Acosta MD [Primary Care Provider] - (Follow up with PCP within the week.) Additional Instructions: RETURN TO THE EMERGENCY DEPARTMENT FOR CHANGING OR WORSENING SYMPTOMS. The documentation as recorded by the Марина meza Abhishek accurately reflects the service I personally performed and the decisions made by me, Sid De Leon MD.
[2017-06-13 17:34] VITALS: BP 102/62
== END 2017-06-13 17:37 | disposition home or self-care (01) ==
LOC: ED 12:23
DX: R10.13 Epigastric pain (principal); M54.9 Dorsalgia, unspecified; R11.0 Nausea; R10.30 Lower abdominal pain, unspecified
CPT/HCPCS: 36415; 80053; 81003; 81015; 83605; 83690; 84702; 85025; 86140; 96365; 99284; A9270-GY

== ENCOUNTER 2018-07-21 05:12 | Emergency (ER) | payer BC ==
[2018-07-21] MEDS ORDERED: Ketorolac INJ* 30 MG/ML 1 ML VIAL IM ONE (05:39)
--- NOTE | 2018-07-21 05:43 | ED ---
Abdominal Pain/Female - HPI Summary HPI Summary: A 22 y/o female presents to [facility] with a chief complaint of abdominal pain since 02:00 07/21/18. She reports that her abdominal pain is more left sided. At triage she rated her pain as a 9/10 in severity. She reports that she had a gallbladder ultrasound one year [employer] that was negative for stones. She denies any SHx. She reports that she last had a bowel movement on 07/20/18. Per triage note the patient denies N/V/D or fever but she also c/o some back pain. - History of Current Complaint Chief Complaint: EDAbdPain Stated Complaint: ABD/BACK PAIN PAIN Time Seen by Provider: 07/21/18 05:32 Hx Obtained From: Patient Onset/Duration: Sudden Onset, Still Present Timing: Constant Severity Initially: Severe Severity Currently: Severe Pain Intensity: 9 Pain Scale Used: 0-10 Numeric Location: Diffuse - more left sided Radiates: Yes Radiates to: Back Character: Not Applicable Aggravating Factor(s): Nothing Alleviating Factor(s): Nothing Associated Signs and Symptoms: Positive: Back Pain. Negative: Fever, Nausea, Vomiting, Diarrhea Allergies/Adverse Reactions: Allergies Allergy/AdvReac Type Severity Reaction Status Date / Time No Known Allergies Allergy Verified 07/21/18 05:18 PMH/Surg Hx/FS Hx/Imm Hx Endocrine/Hematology History: Denies: Hx Diabetes, Hx Thyroid Disease Cardiovascular History: Denies: Hx Hypertension Respiratory History: Denies: Hx Asthma, Hx Chronic Obstructive Pulmonary Disease (COPD) GI History: Denies: Hx Ulcer - Surgical History Surgery Procedure, Year, and Place: none reported. Infectious Disease History: No Infectious Disease History: Denies: Hx Clostridium Difficile, Hx Hepatitis, Hx Human Immunodeficiency Virus (HIV), Hx of Known/Suspected MRSA, Hx Shingles, Hx Tuberculosis, Hx Known/ Suspected VRE, Hx Known/Suspected VRSA, History Other Infectious Disease, Traveled Outside the [place] in Last 30 Days - Family History Known Family History: Negative: Hypertension, Renal Disease - Social History Alcohol Use: Occasionally Alcohol Amount: couple times every 2 weeks Substance Use Type: Reports: None Smoking Status (MU): Never Smoked Tobacco Review of Systems Negative: Fever Positive: Abdominal Pain. Negative: Vomiting, Diarrhea, Nausea All Other Systems Reviewed And Are Negative: Yes Physical Exam - Summary Physical Exam Summary: VITAL SIGNS: Reviewed. GENERAL: Patient is a well-developed and nourished FEMALE who is lying comfortable in the stretcher. Patient is not in any acute respiratory distress. HEAD AND FACE: No signs of trauma. No ecchymosis, hematomas or skull depressions. No sinus tenderness. EYES: PERRLA, EOMI x 2, No injected conjunctiva, no nystagmus. EARS: Hearing grossly intact. Ear canals and tympanic membranes are within normal limits. MOUTH: Oropharynx within normal limits. NECK: Supple, trachea is midline, no adenopathy, no JVD, no carotid bruit, no c- spine tenderness, neck with full ROM. CHEST: Symmetric, no tenderness at palpation LUNGS: Clear to auscultation bilaterally. No wheezing or crackles. CVS: Regular rate and rhythm, S1 and S2 present, no murmurs or gallops appreciated. ABDOMEN: Diffuse tenderness over the left side of the abdomen. No signs of distention. No rebound no guarding, and no masses palpated. Bowel sounds are normal. EXTREMITIES: FROM in all major joints, no edema, no cyanosis or clubbing. NEURO: Alert and oriented x 3. No acute neurological deficits. Speech is normal and follows commands. SKIN: Dry and warm Triage Information Reviewed: Yes Vital Signs On Initial Exam: Initial Vitals Temp Pulse Resp BP Pulse Ox 98.1 F 78 20 133/76 100 07/21/18 05:14 07/21/18 05:14 07/21/18 05:14 07/21/18 05:14 07/21/18 05:14 Vital Signs Reviewed: Yes Diagnostics - Vital Signs Vital Signs Temp Pulse Resp BP Pulse Ox 07/21/18 05:14 98.1 F 78 20 133/76 100 - Laboratory Lab Statement: Any lab studies that have been ordered have been reviewed, and results considered in the medical decision making process. - Radiology abdomen x-ray Radiology Interpretation Completed By: ED Physician Summary of Radiographic Findings: Increased colonic stool, consistent with constipation. Pending official imaging report. Re-Evaluation - Re-Evaluation First Eval Re-Evaluation Time: 06:22 Change: Improved Comment: Patient is pain free, no tenderness at all. Abdominal Pain Fem Course/Dx - Course Course Of Treatment: A 22 y/o female presents to [facility] with a chief complaint of abdominal pain since 02:00 07/21/18. She reports that her abdominal pain is more left sided. At triage she rated her pain as a 9/10 in severity. She reports that she had a gallbladder ultrasound one year [employer] that was negative for stones. She denies any SHx. She reports that she last had a bowel movement on 07/20/18. Per triage note the patient denies N/V/D or fever but she also c/o some back pain. The physical exam revealed diffuse tenderness over the left side of her abdomen. In the ED course the patient was given 30mg Toradol IM. Her abdomen x-ray revealed increased colonic stool, consistent with constipation. Urine obtained. Urine blood 2+. Ur Squamous Epith Cells present. Amorphous crystals present. Upon re-eval the patient is pain free and has no tenderness at all. She will be discharged. Return precautions given. She is agreeable with this plan. - Diagnoses Provider Diagnoses: Abdominal pain, Constipation Discharge - Sign-Out/Discharge Documenting (check all that apply): Patient Departure - DC Patient Received Moderate/Deep Sedation with Procedure: No - Discharge Plan Condition: Stable Disposition: HOME Patient Education Materials: Constipation (DC), Abdominal Pain (ED) Referrals: Alex Acosta MD [Primary Care Provider] - (1-2 days) Additional Instructions: RETURN TO THE EMERGENCY DEPARTMENT FOR CHANGING OR WORSENING SYMPTOMS. FOLLOW UP WITH PCP IN 1-2 DAYS. - Attestation Statements Document Initiated by Gloria: Yes Documenting Scribe: Nixon Salazar Provider For Whom Gloria is Documenting (Include Credential): Liu Mendoza MD Scribe Attestation: INixon, scribed for Liu Mendoza MD on 07/21/18 at 0629. Status of Scribe Document: Ready
[2018-07-21 06:22] LABS: Urine Appearance Cloudy; Urine Bacteria Absent (Absent); Urine Bilirubin Negative (Negative); Urine Blood 2+ (Negative); Urine Color Yellow; Urine Glucose Negative (Negative); Urine Ketones Negative (Negative); Urine Nitrite Negative (Negative); Urine Protein Negative (Negative); Urine Red Blood Cell Absent (Absent); Urine Specific Gravity 1.013 (1.010-1.030); Urine Squamous Epithelial Cell Present (Absent); Urine Urobilinogen Negative (Negative); Urine White Blood Cell Absent (Absent)
[2018-07-21] MEDS ORDERED: Bisacodyl SUPP* 10 MG SUPP PR ONE (06:24)
[2018-07-21] MEDS ORDERED: Magnesium CITRATE* 300 ML BTL PO ONE (06:24)
[2018-07-21 06:29] LABS: Hematocrit 37 % (35-47); Hemoglobin 11.8 g/dl (12.0-16.0); Mean Corpuscular HGB Conc 32 g/dl (31-36); Mean Corpuscular Hemoglobin 22 pg (27-31); Mean Corpuscular Volume 67 fL (80-97); Mean Platelet Volume 7.2 fL (7.4-10.4); Platelet Count 389 10^3/ul (150-450); Red Blood Count 5.44 10^6/ul (4.00-5.40); Red Cell Distribution Width 21 % (10.5-15); White Blood Count 6.6 10^3/ul (3.5-10.8)
[2018-07-21 06:40] LABS: Albumin 4.4 g/dL (3.2-5.2); Albumin/Globulin Ratio 1.6 (1-3); BUN/Creatinine Ratio 22.2 (8-20); C Reactive Protein 4.22 mg/L (<8.01); Calcium 9.6 mg/dL (8.6-10.3); EGFR African American 141.7 (>60); EGFR Non-African American 117.1 (>60); Globulin 2.8 g/dL (2-4); Potassium 3.6 mmol/L (3.5-5.0); Total Bilirubin 0.4 mg/dL (0.2-1.0); Total Protein 7.2 g/dL (6.4-8.9)
[2018-07-21 06:42] VITALS: BP 129/87
[2018-07-21 06:46] LABS: HCG Pregnancy 0.63 mIU/mL
[2018-07-21 06:54] LABS: ABS Basophils 0 10^3/ul (0-0.2); ABS Eosinophils 0.1 10^3/ul (0-0.6); ABS Lymphocytes 1.3 10^3/ul (1.0-4.8); ABS Monocytes 0.5 10^3/ul (0-0.8); ABS Neutrophils 4.7 10^3/ul (1.5-7.7); ABS Nucleated RBC 0 10^3/ul; Eosinophil % 1.2 %; Lymphocyte % 19.3 %; Microcytosis 1+; Nucleated Red Blood Cells % 0
== END 2018-07-21 06:41 | disposition home or self-care (01) ==
LOC: ED 05:12
DX: K59.00 Constipation, unspecified (principal); R10.9 Unspecified abdominal pain; M54.9 Dorsalgia, unspecified
CPT/HCPCS: 36415; 74019; 80053; 81003; 81015; 83690; 84702; 85025; 85060; 86140; 96372; 99283; A9270-GY; J1885